=== PATIENT | female | born 1945 | race Caucasian/White ===

== ENCOUNTER 2025-01-28 13:46 | Outpatient (REF) | payer MEDICARE, SELFPAY | END 2025-01-28 13:47 | disposition home or self-care (01) | LOC: LBN 13:46 | PROVIDERS: PCP Internal Medicine; Visit Provider Physician Assistant Medical | DX: J02.9 Acute pharyngitis, unspecified (principal) | CPT/HCPCS: 87070 ==

== ENCOUNTER 2025-04-17 12:07 | Emergency (ER) | payer MEDICARE, SELFPAY ==
[2025-04-17 12:12] VITALS: BP 101/61; PULSE 71; RESP 16; TEMP 37.3; O2SAT 96
--- NOTE | 2025-04-17 12:30 | DI.RAD_ITS ---
Exam(s) XR CHEST 2V PA LATERAL EXAM: XR CHEST 2V PA LATERAL CLINICAL HISTORY: cough. TECHNIQUE: 2D digital imaging was performed. COMPARISON: No exams were available for comparison FINDINGS: 2 views: Heart size is normal. The mediastinum is not widened. Bilateral hyperinflation noted but no confluent infiltrates nor pleural effusions. No pulmonary abdullahi a. No pneumothorax. IMPRESSION: No acute pulmonary findings.Bilateral hyperinflation. DATA REPOSITORY: RADIATION DOSE DELIVERED:
--- NOTE | 2025-04-17 12:33 | ED.GENADUL_ITS ---
Discharge Plan Disposition Patient Disposition: Home Condition: Stable Discharge Details Clinical Impression: Upper respiratory infection Primary Care Provider: Adriel Weaver ED Provider: Irving Rose Home Meds and New Rx's Prescriptions: Continued diltiazem HCl 120 mg capsule,extended release 24hr 120 mg PO DAILY Patient Comments: TAKE ONE CAPSULE BY MOUTH EVERY DAY multivitamin [Daily Multi-Vitamin] Tablet 1 tab PO DAILY cholecalciferol (vitamin D3) 50 mcg (2,000 unit) tablet,disintegrating 50 mcg PO DAILY levothyroxine [Synthroid] 125 MCG tablet 125 mcg PO DAILY Discharge Instructions Instructions: Upper Respiratory Infection ED Additional Instructions: You were seen in the emergency department for your upper respiratory infection, your vitals are perfectly stable, they show no indication of severe infection or sepsis, your chest x-ray is completely clear without any evidence of bronchitis or pneumonia, your COVID/flu/RSV PCR swab is negative. I suspect that this is a viral upper respiratory infection and will resolve without severe intervention in the next 7 to 10 days. It would be far too early to start empiric antibiotics but if you do not recover in that timeframe you could seek a primary care visit to start empiric antibiotics at that time. We provided you with albuterol inhaler for mild symptomatic shortness of breath but your oxygen level is perfectly stable, please give her regular doses of Tylenol and ibuprofen in alternating fashion, your fevers were very well-controlled at time of arrival and I suspect it will improve in the coming days. [facility], fevers not responding to Tylenol or ibuprofen, chest pain, other emergent concerns. Referrals: Javon Pugh [ [facility] STAFF PHYSICIAN] - Discharge Data Discharge Date/Time-TO BE ENTERED AT DEPARTURE: 04/17/25 14:25 HPI General Date/Time Provider Initiated Documentation: 04/17/25 12:18 . HPI Narrative: 79 year-old female presents to ED today by POV/ambulating with a chief complaint of sore throat, fevers, cough with onset on Sunday, day 3-4. Quality described as generally unwell, endorses mild shortness of breath, no radiation to current fever, labored breathing, chest pain, near syncope, nausea/vomiting, diarrhea. Severity is described as moderate. Palliating factors include Tylenol with relief of fever. Provoking factors include nothing specific. Patient not anticoagulated. Related Data Home Medications ?Medication ?Instructions ?Recorded ?Confirmed levothyroxine 125 mcg tablet 125 mcg PO DAILY 11/06/17 04/17/25 (Synthroid) cholecalciferol (vitamin D3) 50 50 mcg PO DAILY 04/17/25 04/17/25 mcg (2,000 unit) disintegrating tablet diltiazem HCl 120 mg 120 mg PO DAILY 04/17/25 04/17/25 capsule,extended release 24 hr multivitamin (Daily Multi-Vitamin 1 tab PO DAILY 04/17/25 04/17/25 tablet) Allergies Allergy/AdvReac Type Severity Reaction Status Date / Time codeine Allergy Severe Hives Unverified 04/17/25 12:17 hydrocodone Allergy Severe Hives Unverified 04/17/25 12:17 morphine AdvReac Severe Psychosis Unverified 04/17/25 12:17 metronidazole AdvReac Mild Dizziness/L Verified 04/17/25 12:18 ighthead General Stated Complaint: [facility]Medical DEVENDRA: 3 Review of Systems All systems reviewed & are unremarkable except as noted in HPI and below Exam Narrative Exam Narrative: GENERAL APPEARANCE: Well-nourished, non-toxic, awake and alert, atraumatic, no acute distress. SKIN: Warm, pink, dry, intact, without rashes/lesions/ulcerations. HEAD: Normocephalic, atraumatic, normal hair distribution for gender/age. EYES: Normal conjunctiva, no exudates on lids/lashes. ENT: Nares patent, no circumoral cyanosis, no facial swelling NECK: Supple, trachea midline, painless cervical ROM. LUNGS/CHEST: Lungs CTA bilaterally-no rhonchi/rales/wheezes diffusely, non- labored respirations, normal A/P diameter, symmetrical expansion, no chest wall deformity HEART (CV/PV): Regular rate and rhythm without murmur, no peripheral edema, no JVD. ABDOMEN: Soft, non-distended, no guarding, no tenderness. MSK: Normal ROM, no swelling/deformity to bilateral UEs or LEs, moving all extremities without weakness, no cyanosis, spine midline without tenderness, normal curvature. NEURO: Mental Status AAOx4 - alert to person, place, time, events No facial droop, no forehead involvement. Motor: No focal weakness - strength 5/5 in bilateral UEs and LEs, proximal and distal, symmetric. Sensory: sensation intact to light touch globally. Gait normal: patient ambulated without ataxia into ED room. PSYCH: euthymic, cooperative, pleasant, appropriate speech Course Vital Signs Vital signs: Vital Signs Temperature 37.3 C 04/17/25 12:12 Pulse 71 04/17/25 12:12 Respiratory Rate 16 04/17/25 12:12 Blood Pressure 101/61 04/17/25 12:12 Pulse Oximetry 96 04/17/25 12:12 Temperature 37.3 C 04/17/25 12:12 Temperature Source Oral 04/17/25 12:12 Pulse 71 04/17/25 12:12 Respiratory Rate 16 04/17/25 12:12 Blood Pressure 101/61 04/17/25 12:12 Blood Pressure Position Sitting 04/17/25 12:12 Pulse Oximetry 96 04/17/25 12:12 Oxygen Delivery Method Room Air 04/17/25 12:12 Oxygen Flow Rate 0 04/17/25 12:12 Pain Level 0 04/17/25 12:12 Medical Decision Making This dictation utilizes [id number] dictation software and may contain unedited grammatical errors. 79 year-old female presents to ED today by POV/ambulating with a chief complaint of sore throat, fevers, cough with onset on Sunday, day 3-4. Quality described as generally unwell, endorses mild shortness of breath, no radiation to current fever, labored breathing, chest pain, near syncope, nausea/vomiting, diarrhea. Severity is described as moderate. Palliating factors include Tylenol with relief of fever. Provoking factors include nothing specific. Patients' medical history: History of atrial fibrillation hypothyroidism, ulcerative colitis, history of skin neoplasm. Family and social history: Noncontributory, no recent travel or sick contacts. Pertinent exam findings / vital signs include lungs CTA, afebrile nontoxic, benign abdomen with nonlabored respiration. Differential / pathologies of concern include pneumonia, upper respiratory infection Diagnostic studies of: -XR chest, COVID/flu/RSV PCR. - PCR swab negative - XR chest negative for any pneumonia Interventions of: -Albuterol inhaler for symptomatic shortness of breath ED Course/Assessment/Plan: 79-year-old female presents with upper respiratory infection, no pneumonia on chest x-ray, afebrile and nontoxic, provided albuterol inhaler for symptomatic shortness of breath, counseled on therapeutic dosing of Tylenol and ibuprofen, strict return criteria for any respiratory distress, chest pain or other emergent concerns otherwise take Tylenol and ibuprofen, follow-up with PCP for empiric antibiotics if illness lasts longer than 2 weeks. Findings not consistent with pneumonia, respiratory distress or failure, hypoxia, inability to tolerate oral intake. Disposition of Upper Respiratory Infection. Patient verbalized understanding of the plan and return to ED criteria and engaged in shared decision making. Medical Records Medical records reviewed: Yes I reviewed the patient's medical records. Imaging Data Radiologic Study: Attestation: I personally reviewed and interpreted this imaging study as follows: Imaging: X-Ray Radiologist's impression: EXAM: XR CHEST 2V PA LATERAL CLINICAL HISTORY: cough. TECHNIQUE: 2D digital imaging was performed. COMPARISON: No exams were available for comparison FINDINGS: 2 views: Heart size is normal. The mediastinum is not widened. Bilateral hyperinflation noted but no confluent infiltrates nor pleural effusions. No pulmonary edema. No pneumothorax. IMPRESSION: No acute pulmonary findings.Bilateral hyperinflation. Lab Data Lab results reviewed: Yes I reviewed the patient's lab results. Labs: Laboratory Tests Range/Units 04/17/25 12:53 COVID-19 Source Nasopharynx SARS-CoV-2 (PCR) (Negative) Negative Influenza Type A (PCR) (Negative) Negative Influenza Type B (PCR) (Negative) Negative RSV (PCR) (Negative) Negative Quality:SDOH Health Related Social Needs: No Data to Display PFSH All Active Problems (Updated 04/17/25 @ 13:45 by PATIENCE Hair) Upper respiratory infection (Acute) Social History Smoking risk assessment performed?: No Do you feel safe at home: Yes Do you feel safe in your relationship?: Yes
[2025-04-17 13:09] VITALS: RESP 16
[2025-04-17 13:37] LABS: COVID-19 PCR Negative (Negative); Influenza A PCR Negative (Negative); Influenza B PCR Negative (Negative); RSV PCR Negative (Negative)
[2025-04-17 13:40] LABS: Source Nasopharynx
[2025-04-17 14:23] VITALS: BP 110/75
== END 2025-04-17 14:25 | disposition home or self-care (01) ==
LOC: ER 13:52
PROVIDERS: Emergency Provider Physician Assistant; PCP Nurse Practitioner Gerontology
DX: J06.9 Acute upper respiratory infection, unspecified (principal)
CPT/HCPCS: 87637; 99283; 71046